=== PATIENT | female | born 1990 | race American Indian/Alaskan Native ===

== ENCOUNTER 2017-02-13 12:56 | Emergency (ER) | payer OTHER ==
[2017-02-13] MEDS ORDERED: Albuterol-Ipratrop 3 mg / 0.5 (3 ml) UD INH STA ×2 (14:23→15:26)
--- NOTE | 2017-02-13 14:27 | C.PDOC ---
History Of Present Illness 26 y/o female with hx asthma c/o cough with chest tightness for last 2 1/2 days with chills. pt ran out of inhaler. no sick contacts. pt has pleuritic pain with cough, no sob. no fever. pt not . Time Seen by Provider: 02/13/17 14:12 Chief Complaint (Nursing): Cough, Cold, Congestion History Per: Patient History/Exam Limitations: no limitations Onset/Duration Of Symptoms: Days (2 1/2) Current Symptoms Are (Timing): Still Present Associated Symptoms: Chills, Cough Ear Symptoms: Bilateral: None Past Medical History Reviewed: Historical Data, Nursing Documentation, Vital Signs Vital Signs: Last Vital Signs Temp 97.4 F L 02/13/17 16:42 Pulse 84 02/13/17 16:42 Resp 18 02/13/17 16:42 BP 117/78 02/13/17 16:42 Pulse Ox 96 02/13/17 22:55 - Medical History PMH: Asthma Surgical History: Family History: States: Unknown Family Hx - Social History Hx Tobacco Use: No Hx Alcohol Use: No Hx Substance Use: No - Immunization History Hx Tetanus Toxoid Vaccination: No Hx Influenza Vaccination: No Hx Pneumococcal Vaccination: No Review Of Systems Constitutional: Positive for: Chills. Negative for: Fever ENT: Negative for: Ear Pain, Throat Pain Cardiovascular: Positive for: Chest Pain (sasthma like tightness) Respiratory: Positive for: Cough, Pleuritic Pain, Sputum Gastrointestinal: Negative for: Vomiting, Abdominal Pain, Diarrhea Musculoskeletal: Negative for: Back Pain Neurological: Negative for: Weakness, Numbness Physical Exam - Physical Exam Appears: Non-toxic, Other (uncomfortable) Skin: Warm, Dry Head: Atraumatic, Normacephalic Oral Mucosa: Moist Tongue: Normal Appearing Lips: Normal Appearing Throat: No Erythema, No Exudate Neck: Normal ROM, Supple Chest: No Deformity, No Tenderness Cardiovascular: Rhythm Regular (tachycardic, low 100s) Respiratory: Decreased Breath Sounds (with insp wheezing in lower [place]. ), No Rales, No Rhonchi, Wheezing, Other (tachypneic) Back: No CVA Tenderness Neurological/Psych: Oriented x3, Normal Speech, Normal Cognition ED Course And Treatment ECG: Interpreted By Me, Viewed By Me ECG Rhythm: Sinus Tachycardia Interpretation Of ECG: nsr, non specific st-t changes Rate From EC O2 Sat by Pulse Oximetry: 96 Pulse Ox Interpretation: Normal Medical Decision Making Medical Decision Making: pt with cough and chest tightness; ekg, cxr, duoneb and tylenol ordered. will re -eval. 327 pm pt reports dec chest tightness after tylenol and nebulizer. increased bs in upper [place], still coarse sounds in basilar [place]. will give another neb tx. 444 pm pt feeling much better, lungs cta, not tachypneic. will d/c with albuterol mdi. tylenol and zithromax. f/u med clinic in 1-2 days. Disposition Counseled Patient/Family Regarding: Studies Performed, Diagnosis, Need For Followup, Rx Given - Disposition Referrals: Clinic,Med Surg [Primary Care Provider] - Disposition: HOME/ ROUTINE Disposition Time: 16:45 Condition: IMPROVED Additional Instructions: Take antibiotic once a day for next 4 days. Use inhaler every 4-6 hours, 2 puffs at a time. Tylenol for pain. Follow up wiht PMD in 1-2 days. Return to ED for any worsening symptoms. Prescriptions: Albuterol HFA [Ventolin HFA 90 mcg/actuation (8 g)] 2 puff IH [id number] #1 inh Acetaminophen [Tylenol Extra Strength] 1,000 mg PO TID #40 tablet Azithromycin [Zithromax] 250 mg PO DAILY #4 tab Instructions: Community Acquired Pneumonia (ED) Forms: [facility] (Canadian), General Discharge Instructions - Clinical Impression Clinical Impression: Pneumonia, Asthma
--- NOTE | 2017-02-13 14:39 | RAD ---
Chest x-ray two views History: Cough. Comparison: None available. Findings: Diffuse increased interstitial lung markings which may represent mild venous congestion and or mild interstitial infiltrate. No focal pleural effusion. Minimal atelectatic changes in the right midlung zone. Bibasilar breast and nipple shadows. Heart size within normal limits. Impression: Diffuse increased interstitial lung markings which may represent mild venous congestion and or mild interstitial infiltrate. No focal pleural effusion. Minimal atelectatic changes in the right midlung zone.
[2017-02-13] MEDS ORDERED: Albuterol-Ipratrop 3 mg / 0.5 (3 ml) UD ONE ×2 (14:40→15:38)
[2017-02-13 16:43] VITALS: BP 117/78; PULSE 84; RESP 18; TEMP 97.4
[2017-02-13 16:47] VITALS: O2SAT 96
--- NOTE | 2017-02-14 14:56 | CARD ---
APPROVED REPORT EKG Measurement Heart [id number] <Conclusion> Sinus tachycardia Nonspecific T wave abnormality Abnormal ECG
== END 2017-02-13 16:57 | disposition home or self-care (01) ==
LOC: C.ER 12:56 → SUPCPDRO 12:56 → C.ER 16:57
DX: J18.9 Pneumonia, unspecified organism (principal); J45.909 Unspecified asthma, uncomplicated

== ENCOUNTER 2018-07-28 19:37 | Emergency (ER) | payer SELFPAY ==
[2018-07-28] MEDS ORDERED: cefTRIAXone (Rocephin) 250 mg Inj IM STA (20:19)
--- NOTE | 2018-07-28 20:44 | C.PDOC ---
History Of Present Illness 28 y/o female pt presents to the ER c/o painful lesion in her vaginal area for x 4 days. Pt reports she found the lesion a couple of days ago but it was not painful as it is now. Patient denies vaginal discharge. Pt denies fever, chills, dysuria, abdominal pain, nausea and vomiting. Time Seen by Provider: 07/28/18 19:53 Chief Complaint (Nursing): Female Genitourinary History Per: Patient History/Exam Limitations: no limitations Onset/Duration Of Symptoms: Days (x4) Current Symptoms Are (Timing): Still Present Past Medical History Reviewed: Historical Data, Nursing Documentation, Vital Signs Vital Signs: Last Vital Signs Temp 98.2 F 07/28/18 19:42 Pulse 70 07/28/18 19:42 Resp 20 07/28/18 19:42 BP 133/83 07/28/18 19:42 Pulse Ox 98 07/28/18 19:42 - Medical History PMH: Asthma Surgical History: Family History: States: Unknown Family Hx - Social History Hx Tobacco Use: No Hx Alcohol Use: No Hx Substance Use: No - Immunization History Hx Tetanus Toxoid Vaccination: No Hx Influenza Vaccination: No Hx Pneumococcal Vaccination: No Review Of Systems Except As Marked, All Systems Reviewed And Found Negative. Constitutional: Negative for: Fever, Chills Gastrointestinal: Negative for: Nausea, Vomiting, Abdominal Pain Genitourinary: Positive for: Vaginal Discharge, Other (clump in vaginal area; lesions ) Physical Exam - Physical Exam Appears: Non-toxic, No Acute Distress Skin: Warm, Dry, No Rash Head: Normacephalic Eye(s): bilateral: Normal Inspection Gastrointestinal/Abdominal: Soft, No Tenderness Pelvic: Vaginal Bleeding (due to 2nd day of menstruation), No Vaginal Discharge, Other (single greyish ulceration, based in the entrance of the vagina; ulcer tender to palpation; no lymphadenopathy ) Extremity: Normal ROM, No Tenderness Neurological/Psych: Oriented x3, Normal Speech, Normal Cognition ED Course And Treatment O2 Sat by Pulse Oximetry: 98 (RA) Progress Note: Ulcer was swabbed for culture and GC chlamydia was ordered. Blood was taken to test for syphilis. Pt treated with rocephin and zithromax and instructed to f/u with OBGYN Disposition - Disposition [facility]errals[facility]] [facility]. [facility] [Outside] Disposition: HOME/ ROUTINE Disposition Time: 20:42 Condition: STABLE Additional Instructions: Follow up with OBGYN within 1-2 days. Return to ED if feel worse. Instructions: Sexually-Transmitted Diseases (DC) Forms: [facility] (Latvian) - Clinical Impression Clinical Impression: Genital ulcer, female - PA / LIGHT ADJUSTER / Resident Statement MD/DO has reviewed & agrees with the documentation as recorded. - Scribe Statement The provider has reviewed the documentation as recorded by the Tona Arenas Do All medical record entries made by the Matheusibcorina were at my direction and personally dictated by me. I have reviewed the chart and agree that the record accurately reflects my personal performance of the history, physical exam, medical decision making, and the department course for this patient. I have also personally directed, reviewed, and agree with the discharge instructions and disposition.
[2018-07-28 21:19] VITALS: BP 125/79; PULSE 71; RESP 16; TEMP 98.3
[2018-07-28 21:34] VITALS: O2SAT 98
== END 2018-07-28 21:18 | disposition home or self-care (01) ==
LOC: C.ER 19:37
DX: N76.5 Ulceration of vagina (principal)
CPT/HCPCS: 81025; 86592; 87070; 87181; 87491; 87591; 96372; 99284; J0696

== ENCOUNTER 2018-08-07 11:43 | Emergency (ER) | payer SELFPAY | END 2018-08-07 16:01 | disposition home or self-care (01) | LOC: C.ER 11:43 ==

== ENCOUNTER 2018-09-24 09:50 | Emergency (ER) | payer MEDICAID ==
[2018-09-24 10:32] VITALS: BP 144/95; PULSE 73; RESP 20; TEMP 97.7; O2SAT 99
--- NOTE | 2018-09-24 11:15 | C.PDOC ---
History Of Present Illness 28 y/o female presents to the ER complaining of left trapezius pain which has been present for the past 3 days. Patient states that the pain is worse with hot showers.Patient reports that she did not use any NSAID's. Denies having trauma, falls, injuries, weakness and numbness. Time Seen by Provider: 09/24/18 11:12 Chief Complaint (Nursing): Back Pain History Per: Patient History/Exam Limitations: no limitations Onset/Duration Of Symptoms: Days Current Symptoms Are (Timing): Still Present Severity: Moderate Past Medical History Reviewed: Historical Data, Nursing Documentation, Vital Signs Vital Signs: Last Vital Signs Temp 97.7 F 09/24/18 10:28 Pulse 73 09/24/18 10:28 Resp 20 09/24/18 10:28 BP 144/95 H 09/24/18 10:28 Pulse Ox 99 09/24/18 10:28 - Medical History PMH: Asthma Surgical History: Family History: States: Unknown Family Hx - Social History Hx Tobacco Use: No Hx Alcohol Use: Yes Hx Substance Use: No - Immunization History Hx Tetanus Toxoid Vaccination: No Hx Influenza Vaccination: No Hx Pneumococcal Vaccination: No Review Of Systems Except As Marked, All Systems Reviewed And Found Negative. Musculoskeletal: Positive for: Other (left sided trapezius pain) Neurological: Negative for: Weakness, Numbness Physical Exam - Physical Exam Appears: Non-toxic, No Acute Distress Skin: Warm, Dry Head: Atraumatic, Normacephalic Eye(s): bilateral: Normal Inspection Nose: Normal Oral Mucosa: Moist Neck: Supple, Other (medial trapezius tenderness with inflammation) Chest: Symmetrical Cardiovascular: Rhythm Regular Respiratory: Normal Breath Sounds, No Rales, No Rhonchi, No Wheezing Extremity: Normal ROM Neurological/Psych: Oriented x3, Normal Speech ED Course And Treatment O2 Sat by Pulse Oximetry: 99 (RA) Pulse Ox Interpretation: Normal Medical Decision Making Medical Decision Making: L trapezius strain/sprain, no trauma ice/NSAIDS Disposition Doctor Will See Patient In The: Office Counseled Patient/Family Regarding: Studies Performed, Diagnosis - Disposition Referrals: [facility] [Outside] [facility] [Outside] [facility] [Outside] [facility] [Outside] Disposition: HOME/ ROUTINE Disposition Time: 11:15 Condition: GOOD Additional Instructions: ice packs 1/2 hour per hour, nothing hot no hot showers for 3 days Advil/Motrin 400-600 mg every 6 hours as needed Instructions: Muscle Strain Forms: [facility] (Telugu) - Clinical Impression Clinical Impression: Trapezius muscle strain - Scribe Statement The provider has reviewed the documentation as recorded by the Scribe Norman Mack Provider Attestation: All medical record entries made by the Scribe were at my direction and personally dictated by me. I have reviewed the chart and agree that the record accurately reflects my personal performance of the history, physical exam, medical decision making, and the department course for this patient. I have also personally directed, reviewed, and agree with the discharge instructions and disposition.
== END 2018-09-24 11:31 | disposition home or self-care (01) ==
LOC: C.ER 09:50
DX: S46.912A Strain of unspecified muscle, fascia and tendon at shoulder and upper arm level, left arm, initial encounter (principal); X58.XXXA Exposure to other specified factors, initial encounter